=== PATIENT | female | born 1965 | race African-American/Black ===

== ENCOUNTER 2025-08-29 03:48 | Emergency (ER) | payer OTHER, MEDICAID ==
[~2025-08-29] VITALS: Ht 175.3 cm; Wt 76.1 kg
[~2025-08-29 03:48] MED LIST: ABX; INHALER
[2025-08-29] MEDS: KETOROLAC TROMETH 30 MG/ML 1ML VIAL IM ONE (05:32)
[2025-08-29] MEDS: ONDANSETRON ODT 4 MG TAB PO ONE (05:33)
--- NOTE | 2025-08-29 05:47 | ED.PDOC ---
History of Present Illness HPI Comments 60-year-old female who presents to the emergency department with a left flank pain worsening since yesterday. Patient has noticed worsening hematuria as well. She reports associated nausea, vomiting and chills. No dysuria, recent injury. Patient does have a history of thyroid disorder. No history of kidney stones in the past. REVIEW OF SYSTEMS: General: No fever, no chills, or fatigue HEENT: No sore throat, no earache, no congestion, no neck pain. Cardiac: No chest pain. No palpitations. Lungs: No shortness of breath, no cough. GI: No nausea, no vomiting, no diarrhea, no constipation, no abdominal pain : No dysuria, frequency, or urgency. No hematuria. Musculoskeletal: No joint pain , no joint swelling, no extremity edema. Skin: No rash, no itching. Neuro: No headache, no dizziness, no weakness (And as sated in HPI) PHYSICAL EXAM: General: Awake, alert and oriented. No acute distress. Skin: Skin in warm, dry and intact. Appropriate color for ethnicity. HEENT: The head is normocephalic and atraumatic. Conjunctivae are clear without exudates or hemorrhage. Sclera is non-icteric. Eyelids are normal in appearance without swelling or lesions. Oral mucosa is pink and moist Neck: The neck is supple with normal range of motion. No JVD. Cardiac: Heart rate normal. Respiratory: No signs of respiratory distress. Abdominal: Abdomen is soft, positive left flank tenderness. No guarding, rebound or rigidity. Neurological: The patient is awake, alert and oriented to person, place, and time with normal speech. Speech is clear. There is no facial asymmetry. Normal gait Psychiatric: Appropriate mood and affect. Good judgement and insight. Chief Complaint: Flank Pain Time Seen by MD: 05:37 Primary Care Provider: VICK Allergies: Coded Allergies: NO KNOWN ALLERGIES (Unverified , 08/14/10) Home Meds Reported Medications [Abx] No Conflict Check 06/04/13 [Inhaler] No Conflict Check 06/04/13 Mode of Arrival: Ambulatory Past Medical History PAST MEDICAL HISTORY: Asthma, Cancer, COPD Surgical History: , Hysterectomy [employer] History: No Pertinent [employer] History Family History Family History: Unobtainable Social History Smoker: Non-Smoker Alcohol: Occasionally Drugs: Denies Drug Use Lives In: Home Was a procedure done? Was a procedure done?: No EKG EKG : Pulse Rate (adult): 86 Differential Dx Considerations may include: Differential diagnoses considered include but are not limited to pyelonephritis, UTI, nephrolithiasis, PUD, musculoskeletal pain, AAA, X-Ray, Labs, Meds, VS Vital Signs Date Time Temp Pulse Resp B/P (MAP) Pulse Ox O2 Delivery O2 Flow Rate FiO2 08/29/25 06:41 86 08/29/25 05:19 Room Air* 0 21 08/29/25 05:16 98.4 79 16 120/81 (94) 98 98.4 08/29/25 03:53 98.5 69 18 108/69 98 98.5 Lab Test 08/29/25 06:14 Range/Units White Blood Count 7.1 4.4-10.8 10^3/uL Red Blood Count 4.28 4.0-5.20 10^6/uL Hemoglobin 13.4 12.2-16.2 g/dL Hematocrit 39.1 36.0-46.0 % Mean Corpuscular Volume 91.3 80.0-100.0 fL Mean Corpuscular Hemoglobin 31.4 28.0-32.0 pg Mean Corpuscular Hemoglobin Concent 34.4 32.0-36.0 g/dL Red Cell Distribution Width 14.7 H 11.8-14.3 % Platelet Count 236 140-450 10^3/uL Mean Platelet Volume 9.3 6.9-10.8 fL Neutrophils (%) (Auto) 87.0 H 37.0-80.0 % Lymphocytes (%) (Auto) 10.1 10.0-50.0 % Monocytes (%) (Auto) 2.3 0.0-12.0 % Eosinophils (%) (Auto) 0.1 0.0-7.0 % Basophils (%) (Auto) 0.5 0.0-2.0 % Neutrophils # (Auto) 6.2 1.6-8.6 10 ^3/uL Lymphocytes # (Auto) 0.7 0.4-5.4 10 ^3/uL Monocytes # (Auto) 0.2 0-1.3 10 ^3/uL Eosinophils # (Auto) 0 0-0.8 10 ^3/uL Basophils # (Auto) 0 0-0.2 10 ^3/uL Nucleated Red Blood Cells 0.0 % Sodium Level 144 136-145 mmol/L Potassium Level 3.5 3.5-5.1 mmol/L Chloride Level 109 H 98-107 mmol/L Carbon Dioxide Level 22 20-31 mmol/L Anion Gap 13 5-15 Blood Urea Nitrogen 9 9-23 mg/dL Creatinine 1.24 H 0.550-1.02 mg/dL Glomerular Filtration Rate Calc 49 >90 mL/min BUN/Creatinine Ratio 7.3 L 10.0-20.0 Serum Glucose 97 74-106 mg/dL Calcium Level 9.2 8.7-10.4 mg/dL Current Medications Medications (Trade) Dose Ordered Sig/Isrrael Route Start Time Stop Time Status Last Admin Ketorolac Tromethamine (Toradol Injection) 45 mg ONCE ONCE IM 08/29/25 05:30 08/29/25 05:31 DC 08/29/25 05:32 Ondansetron HCl (Zofran Po) 4 mg ONCE ONCE PO 08/29/25 05:30 08/29/25 05:31 DC 08/29/25 05:33 X-Ray, Labs, Meds, VS Comment Course in the emergency department eventful patient came in with severe left flank and discolored urine Urine is pending BNP negative CBC negative CT abdomen and pelvis shows a 3 mm distal ureteral calculus with a hydronephrosis Patient will be discharged home to follow up with her PCP Time of 1ST Reevaluation: 05:43 Reevaluation 1ST: Unchanged Time of 2ND Reevaluation: 06:35 Reevaluation 2ND: Unchanged Consultation: PCP, GI Patient Education/Counseling: Diagnosis, Treatment, Prognosis, Need For Follow Up Family Education/Counseling: Diagnosis, Treatment, Prognosis, Need For Follow Up, No Family Present Change of Shift?: Yes (Signed out to Dr. Chawla @[id number] ) SEPSIS Sepsis Screen Date sepsis recognized/suspect: Aug 29, 2025 Time Sepsis recognized/suspect: 035 Recent Procedure: No On Antibiotic Therapy: No Respiratory Rate >20: No Heart Rate >90: No Temp<36 C (96.8 F) or >38.3 C: No SBP <90 or MAP <65 mmHG: No New Acute Mental Status Change: No Is the patient on CPAP, BIPAP,: No Physician Orders Urinalysis (08/29/25 05:22) Ct Ab Pel Wo Con-No Oral Or Iv (08/29/25 05:47) Vital Signs Date Time Temp Pulse Resp B/P (MAP) Pulse Ox O2 Delivery O2 Flow Rate FiO2 08/29/25 06:41 86 08/29/25 05:19 Room Air* 0 21 08/29/25 05:16 98.4 79 16 120/81 (94) 98 98.4 08/29/25 03:53 98.5 69 18 108/69 98 98.5 Laboratory Tests Test 08/29/25 06:14 White Blood Count 7.1 10^3/uL (4.4-10.8) Medications Medications Dose Ordered Sig/Isrrael Route Start Time Stop Time Status Last Admin Dose Admin Ketorolac Tromethamine 45 mg ONCE ONCE IM 08/29/25 05:30 08/29/25 05:31 DC 08/29/25 05:32 Ondansetron HCl 4 mg ONCE ONCE PO 08/29/25 05:30 08/29/25 05:31 DC 08/29/25 05:33 Departure 1 Departure Time of Disposition: 07:22 Impression: Primary Impression: Acute left flank pain Additional Impression: Hydronephrosis concurrent with and due to calculi of kidney and ureter Disposition: 01 HOME / SELF CARE / HOMELESS Condition: Fair Additional Instructions: Patient to follow up with PCP need to push fluids e-Prescriptions Tamsulosin Hcl (Flomax) 0.4 Mg Cap 1 CAP PO BID for 3 Days, #6 CAP 11 Refills Prov: DEIRDRE CHAWLA MD 08/29/25 Diclofenac Potassium (Diclofenac Potassium) 50 Mg Tab 1 TAB PO TIDP for 10 Days, #30 TAB Prov: DEIRDRE CHAWLA MD 08/29/25 Discharged With: Self Critical Care Note Critical Care Time?: No Stability Stability form required: No Heart Score Heart Score: Heart Score Response (Comments) Value History N/A 0 EKG N/A 0 Age 45-64 1 Risk Factors N/A 0 Troponin N/A 0 Total 1 MICHELLE ARZATE MD Aug 29, 2025 05:47 DEIRDRE CHAWLA MD Aug 29, 2025 06:41
--- NOTE | 2025-08-29 06:42 | DVH ---
Exam: CT CT AB PEL WO CON-NO ORAL OR IV History: Flank Pain Comparison Study: None Technique: Multidetector spiral CT of the abdomen and pelvis was performed from lung bases to pubic symphysis. Imaging was performed without intravenous contrast. Coronal and sagittal multiplanar reformats were obtained from the axial data set by the technologist. Radiation Dose : 1. Abdomen/Pelvis: CTDIvol 7.6 mGy, DLP 403.6 mGy*cm. Findings: Evaluation of vasculature and solid organs is limited due to lack of intravenous contrast use. Lung Bases: Lung bases are clear. Visualized portions of the heart and pericardium are unremarkable. Liver: The liver is normal in size. No focal lesions. Gallbladder and Biliary Tree: The gallbladder is unremarkable No intrahepatic or extrahepatic biliary ductal dilatation. Spleen: Unremarkable Pancreas: The pancreas is grossly unremarkable. Adrenal Glands: Unremarkable Kidneys: There is mild left hydroureteronephrosis due to 3 mm distal ureteral calculus. Additional punctate left renal calculus noted. This is adjacent to a parenchymal calcification. No right renal calculus or right hydronephrosis. GI tract: The stomach is grossly normal in appearance. No evidence of small bowel wall thickening or abnormal dilatation to suggest bowel obstruction. The colon is underdistended with submucosal fatty deposition. Normal appendix without inflammatory changes. Peritoneum/mesentery/retroperitoneum. No evidence of free intraperitoneal air. No ascites. No evidence of suspicious lymphadenopathy. Abdominal Wall: Unremarkable. Vasculature: The visualized abdominal aorta is normal in size and caliber. Evaluation of abdominal and pelvic vessels is limited due to lack of intravenous contrast. Urinary Bladder: Grossly unremarkable for degree of distention. Pelvic Organs: Hysterectomy. Musculoskeletal: No aggressive focal bony lesions, acute fractures or dislocation. Multilevel lumbar spondylosis. Soft tissues: Calcifications in the bilateral anterior pelvic soft tissues. IMPRESSION: 1. Mild left hydroureteronephrosis due to 3 mm distal ureteral calculus. 2. Additional punctate left renal calculus.
[2025-08-29 06:51] LABS: Hematocrit 39.1 % (36.0-46.0); Hemoglobin 13.4 g/dL (12.2-16.2); Mean Corpuscular Hemoglobin 31.4 pg (28.0-32.0); Mean Corpuscular Volume 91.3 fL (80.0-100.0); Nucleated Red Blood Cells % 0.0 %
[2025-08-29 06:58] LABS: Potassium 3.5 mmol/L (3.5-5.1); Sodium 144 mmol/L (136-145)
[2025-08-29 06:59] LABS: Anion Gap 13 (5-15); Calcium 9.2 mg/dL (8.7-10.4); Carbon Dioxide 22 mmol/L (20-31)
[2025-08-29 07:04] LABS: BUN/Creatinine Ratio 7.3 (10.0-20.0); Glucose 97 mg/dL (74-106)
[2025-08-29 07:05] LABS: Blood Urea Nitrogen 9 mg/dL (9-23); Chloride 109 mmol/L (98-107)
[2025-08-29] MEDS ORDERED: TAMS-35 PO (07:25)
[2025-08-29] MEDS ORDERED: DICL50TA2 PO (07:25)
[2025-08-29 07:44] VITALS: BP 102/59; PULSE 69; RESP 18; TEMP 97.6; O2SAT 98
[2025-08-29 19:07] LABS: Urine Protein, UAD 1+ (Negative)
== END 2025-08-29 07:51 | disposition home or self-care (01) ==
LOC: ER 03:48
DX: N13.2 Hydronephrosis with renal and ureteral calculous obstruction (principal); J44.9 Chronic obstructive pulmonary disease, unspecified; Z90.710 Acquired absence of both cervix and uterus
CPT/HCPCS: 36415; 74176; 80048; 81001; 85025; 96372; 99285; J1885; Q0162